=== PATIENT | male | born 1955 | race Caucasian/White ===

== ENCOUNTER → 2017-09-25 09:59 | Outpatient (CLI) | payer BC, SELFPAY ==
[2017-09-25 11:34] LABS: ALB/GLOB Ratio 1.1 RATIO (0.9-2.4); AST(SGOT) 19 U/L (15-37); Alanine Aminotransfer ALT/SGPT 25 U/L (16-61); Albumin, Serum 3.7 g/dL (3.2-5.0); Alkaline Phosphatase 82 U/L (45-117); Anion Gap 4 (5-15); BUN 37 mg/dL (7-18); BUN/Creat Ratio 21.6 RATIO (10-20); Calcium,Total 8.7 mg/dL (8.5-10.1); Chloride 104 mmol/L (98-107); Cholesterol 162 mg/dL (200); Creatinine, Serum 1.71 mg/dL (0.70-1.30); EST Glomerular Filtration Rate 43 mL/min (>60); Est Glom Filt Rate - Afr Amer 52 mL/min (>60); Globulin 3.3 g/dL (2.2-4.2); Glucose 86 mg/dL (74-106); High Density Lipoprotein 66 mg/dL; PSA,Total - Annual Screen 1.55 ng/mL (0.00-4.00); Potassium 4.2 mmol/L (3.5-5.1); Sodium Level 138 mmol/L (136-145); Triglycerides 58 mg/dL; Uric Acid 5.4 mg/dL (3.5-7.2); Very Low Density Lipoprotein 12 mg/dL (5-40)
== END ==
PROVIDERS: Family Provider Family Medicine; PCP Family Medicine; Visit Provider Family Medicine
DX: E78.5 Hyperlipidemia, unspecified (principal); M10.9 Gout, unspecified; Z12.5 Encounter for screening for malignant neoplasm of prostate
CPT/HCPCS: 36415; 80053; 80061; 84153; 84550; G0103

== ENCOUNTER → 2018-09-27 11:59 | Outpatient (CLI) | payer BC, SELFPAY ==
[2018-09-27 13:31] LABS: ALB/GLOB Ratio 1.2 RATIO (0.9-2.4); AST(SGOT) 21 U/L (15-37); Alanine Aminotransfer ALT/SGPT 25 U/L (16-61); Albumin, Serum 3.8 g/dL (3.2-5.0); Alkaline Phosphatase 86 U/L (45-117); Anion Gap 6 (5-15); BUN 30 mg/dL (7-18); BUN/Creat Ratio 18.9 RATIO (10-20); Chloride 104 mmol/L (98-107); Cholesterol 165 mg/dL (200); Creatinine, Serum 1.59 mg/dL (0.70-1.30); EST Glomerular Filtration Rate 47 mL/min (>60); Est Glom Filt Rate - Afr Amer 57 mL/min (>60); Globulin 3.1 g/dL (2.2-4.2); Glucose 87 mg/dL (74-106); High Density Lipoprotein 72 mg/dL; PSA,Total - Annual Screen 1.63 ng/mL (0.00-4.00); Potassium 3.8 mmol/L (3.5-5.1); Protein, Total 6.9 g/dL (6.4-8.2); Sodium Level 138 mmol/L (136-145); Triglycerides 61 mg/dL; Uric Acid 5.5 mg/dL (3.5-7.2); Very Low Density Lipoprotein 12 mg/dL (5-40)
== END ==
PROVIDERS: Family Provider Family Medicine; PCP Family Medicine; Referring Provider Family Medicine; Visit Provider Family Medicine
DX: I10 Essential (primary) hypertension (principal); E78.5 Hyperlipidemia, unspecified; M10.9 Gout, unspecified; Z12.5 Encounter for screening for malignant neoplasm of prostate
CPT/HCPCS: 36415; 80053; 80061; 84153; 84550; G0103

== ENCOUNTER → 2019-12-25 09:25 | Outpatient (CLI) | payer BC, SELFPAY ==
[2019-12-25 10:32] LABS: Anion Gap 4 (5-15); BUN 36 mg/dL (7-18); BUN/Creat Ratio 20.2 RATIO (10-20); Calcium,Total 9.2 mg/dL (8.5-10.1); Chloride 107 mmol/L (98-107); Creatinine, Serum 1.78 mg/dL (0.70-1.30); EST Glomerular Filtration Rate 41 mL/min (>60); Est Glom Filt Rate - Afr Amer 50 mL/min (>60); Glucose 97 mg/dL (74-106); PSA,Total - Annual Screen 1.89 ng/mL (0.00-4.00); Potassium 3.7 mmol/L (3.5-5.1); Sodium Level 141 mmol/L (136-145)
== END ==
PROVIDERS: PCP Student in an Organized Health Care Education/Training Program; Referring Provider Nurse Practitioner Adult Health; Visit Provider Nurse Practitioner Adult Health
DX: R33.9 Retention of urine, unspecified (principal); Z12.5 Encounter for screening for malignant neoplasm of prostate
CPT/HCPCS: 36415; 80048; 84153; G0103

== ENCOUNTER → 2020-01-16 08:13 | Outpatient (CLI) | payer BC, SELFPAY ==
--- NOTE | 2020-01-16 08:16 | CT_ITS ---
STUDY: CT ABDOMEN AND PELVIS WITH AND WITHOUT CONTRAST REASON FOR EXAM: Male, 64 years old. MICROSCOPIC HEMATURIA FOR YEARS. NO ABD PAIN. -- H/O ENLARGED PROSTATE W/ INDENTATION AT BLADDER BASE ON US IN 2016. H/O [place] RADIATION DOSAGE (If Supplied By Facility): CTDIvol = ( 11.1275 ) mGy, DLP = ( 1528.55 ) mGycm TECHNIQUE: Transaxial images were obtained from the dome of the diaphragm to the symphysis pubis without oral contrast. IV 100mL Isovue-370 was administered. Sagittal and coronal images were reconstructed. Individualized dose optimization techniques were used for this CT. COMPARISON: None. FINDINGS: The visualized lung bases are unremarkable. Coronary artery calcification. Normal liver. Normal gallbladder and extrahepatic biliary system. Normal spleen. Normal pancreas. Normal bilateral adrenal glands. 1 cm cyst in the upper pole of the right kidney. 1 cm cyst in the upper pole of the left kidney. There is moderate cortical atrophy of the left kidney, consistent with chronic medical renal disease. There is a moderate-sized hiatal hernia. Normal small intestine. There are multiple colonic diverticula consistent with diverticulosis. The appendix is visualized and appears normal. There is scattered atherosclerotic calcification of the abdominal aorta, without a demonstrated aneurysm. Normal inferior vena cava. Normal retroperitoneum. Mild degree of bladder wall thickening more prominently seen in the anterior aspect of the urinary bladder. There is enlargement of the prostate gland. It measures 4.5 cm x 5.6 cm. This causes indentation of the bladder base. Normal abdominal wall. Normal osseous structures. CT/CT Abd/Pelvis W/WO Contrast IMPRESSION: Atrophy of the left kidney. Moderate sized hiatal hernia. Prostatic enlargement with indentation of the bladder base. Electronically Signed: Miguel Rose, at 10:56 EDT , Service support ,
== END ==
PROVIDERS: PCP Student in an Organized Health Care Education/Training Program; Referring Provider Nurse Practitioner Adult Health; Visit Provider Nurse Practitioner Adult Health
DX: R31.21 Asymptomatic microscopic hematuria (principal)
CPT/HCPCS: 74178; Q9967

== ENCOUNTER → 2020-04-20 06:18 | Outpatient (CLI) | payer BC, SELFPAY ==
--- NOTE | 2020-04-20 06:37 | MRI_ITS ---
STUDY: MRI RIGHT SHOULDER REASON FOR EXAM: Biceps strain from shoulder injury 3 weeks ago. TECHNIQUE: Standardized fat and water weighted pulse sequences were obtained in all 3 orthogonal planes. COMPARISON: None. FINDINGS: There is mild supraspinatus tendinosis (T2 coronal image 14) without discrete tendon tear. Normal infraspinatus tendon. Normal subscapularis tendon. Normal teres minor tendon. Normal supraspinatus muscle. Normal infraspinatus muscle. Normal subscapularis muscle. Normal teres minor muscle. There is a small glenohumeral joint effusion. There is a very small cyst in the humeral head. There is a tear of the long biceps tendon retracted to the level of the proximal humeral diaphysis (T2 sagittal image 10). Normal labrum. Normal capsulo- ligamentous complex. There is acromioclavicular arthrosis with hypertrophic changes effacing the subacromial fat (T2 sagittal image 12). There is a Type II morphology (curved), with a neutral orientation. There is no subacromial-subdeltoid bursal fluid. Normal visualized coracohumeral and coracoacromial ligaments. Normal deltoid muscle. Normal trapezius muscle. MRI/Upper Ext Joint Only(Routine) IMPRESSION: Retracted tear of the long biceps tendon. Mild supraspinatus tendinosis. Acromioclavicular arthrosis. Small glenohumeral joint effusion. Electronically Signed: Taz Veras MD at 7:50 EST Tel , Service support ,
== END ==
PROVIDERS: PCP Student in an Organized Health Care Education/Training Program; Referring Provider Physician Assistant; Visit Provider Physician Assistant
DX: S46.111A Strain of muscle, fascia and tendon of long head of biceps, right arm, initial encounter (principal); X58.XXXA Exposure to other specified factors, initial encounter; Y93.9 Activity, unspecified; Y92.9 Unspecified place or not applicable; Y99.9 Unspecified external cause status
CPT/HCPCS: 73221

== ENCOUNTER → 2021-01-25 | Outpatient (CLI) | payer MEDICARE, SELFPAY ==
[2021-01-25 16:56] LABS: Bacteria 0 SEEN /hpf (None Seen); Mucous, Urine 0 SEEN /hpf (<or=2+); Red Blood Cells-Urine 0 SEEN /hpf (0-5); Squamous Epithelial Cells - UA 0 SEEN /hpf (0-5); White Blood Cells 0 SEEN /hpf (0-5)
[2021-01-25 17:06] LABS: Color, Urine Straw (Yellow); Glucose, Dipstick Normal (Normal); Ketone-Dipstick Negative (Negative); Leukocyte Esterase-Dipstick Negative /ul (Negative); Nitrite-Dipstick Negative (Negative); Occult Blood-Urine 25 /ul (Negative); Protein-Dipstick 100 mg/dl (Negative); Urine Bilirubin Dipstick Negative (Negative); Urine Clarity Clear (Clear); Urine Urobilinogen Normal (Normal)
== END | disposition home or self-care (01) ==
LOC: LABSPEC 16:47
PROVIDERS: PCP Student in an Organized Health Care Education/Training Program; Referring Provider Nurse Practitioner Adult Health; Visit Provider Nurse Practitioner Adult Health
DX: R31.21 Asymptomatic microscopic hematuria (principal)
CPT/HCPCS: 81001

== ENCOUNTER 2021-02-11 07:24 | Day surgery (SDC) | payer MEDICARE, SELFPAY ==
--- NOTE | 2021-02-07 10:08 | EKG12_ITS ---
Test Reason : PRE OP Blood Pressure : / mmHG Vent. Rate : 081 BPM Atrial Rate : 081 BPM P-R Int : 172 ms QRS Dur : 088 ms QT Int : 394 ms P-R-T Axes : 044 015 012 degrees QTc Int : 457 ms Normal sinus rhythm Left ventricular hypertrophy Abnormal ECG Confirmed by HAROLDO MADISON, NETO ([id number]), features editor ERIKA JUAREZ ([id number]) on 02/14/2021 12:33:02 PM Referred By: Dean Mandujano Confirmed By:BLANKA ZARCO MD
[2021-02-11] MEDS: Lactated Ringers 1,000 ML 100 ML IV (07:35)
[2021-02-11 07:55] VITALS: BP 167/95; PULSE 90; RESP 16; TEMP 36.6; O2SAT 96; BMI 25.7
[2021-02-11] MEDS: Cefazolin 2 GM in 0.9% Normal Saline 100 ML IV (09:25)
--- NOTE | 2021-02-11 09:25 | PROS_PTH ---
PATIENT: PAMELA ONEAL [place] [facility] [place][id number] AGE/SX: 65/M ROOM: RE02/11/[address]: Dr. Dean Mandujano MD : [id number] BED: DIS: 02/11/2021 SPEC #: [id number] RECD: 02/11/21 09:50 STATUS: HUMBLE KIMBERLY #: [id number] THERON: 02/11/21 09:[address]: Dean Mandujano DEPT: SURGICAL PATHOLOGY RECD BY: Suzie Parks ENTERED: 02/11/21 11:59 SP TYPE: TURP OTHR DR: Dr. Donal Jimenez, DO Tissues: Prostate, NOS Procedures: Surgery Specimen Level IV HEADER OPERATION: Cysto, TUR prostate, Olymp[employer] PRE-OP DIAGNOSIS: Asymptomatic microscopic hematuria, BPH, lower urinary tract symptoms, retained urine TISSUE SUBMITTED: Prostate tissue MICROSCOPIC DIAGNOSIS Prostate tissue, TUR: Benign prostatic hyperplasia, glandular and stromal type. Chronic inflammation. SJ:braden 02/14/2021 MICROSCOPIC DESCRIPTION Slides are reviewed. GROSS DESCRIPTION Received is one container labeled with the patient's name and designated prostate tissue. The specimen consists of multiple irregular fragments of pink-beltre, rubbery, soft tissue that in aggregate weigh 5.3 gm and measure in aggregate 4.5 x 3.5 x 1.2 cm. The entire specimen is submitted in six cassettes. / MANFRED:braden 02/11/21 TC:5 CPT: 90935
--- NOTE | 2021-02-11 09:27 | PCM.DC ---
Discharge Instructions Diet Discharge Diet: No restrictions Activity Discharge Activity: Return to Normal Activity and May Not Drive (while taking narcotic pain medications.) Dressing / Incision Call your doctor if you observe: Fever of 101 or Higher Follow Up Care Please Follow Up With: Dean Mandujano MD When: Call [phone] for an appointment come in sunday to remove cote Test Results: Test results from this visit will be discussed in further detail at your follow-up appointment, if applicable. Discharge Plan Admission Primary Reason for Your Visit: bipin Attending Provider: Dean Mandujano Primary Care Provider: Donal Jimenez Instructions Patient Instructions: BIPIN Home Recovery Discharge Orders/Prescriptions Prescriptions: New ciprofloxacin HCl [Cipro] 500 mg tablet 500 mg PO BID Qty: 14 RF: 0 Continued diltiazem HCl 120 mg Capsule,Extended Release 24hr 120 mg PO QHS RF: 0 allopurinol 300 mg tablet 300 mg PO DAILY RF: 0 lisinopril 40 mg tablet 40 mg PO DAILY RF: 0 finasteride 5 mg tablet 5 mg PO DAILY RF: 0 ezetimibe 10 mg tablet 10 mg PO DAILY RF: 0 cholecalciferol (vitamin D3) [Vitamin D3] 125 mcg (5,000 unit) Tablet 125 mcg PO DAILY RF: 0 aspirin 81 mg Capsule 81 mg PO DAILY RF: 0 Referrals / Follow Up: Dean Mandujano MD [STAFF PHYSICIAN] - Donal Jimenez DO [Primary Care Provider] - Disposition Disposition (needs filled in before D/C Order can be placed): Home, Self Care
--- NOTE | 2021-02-11 09:27 | PCM.OPRPT ---
Report of Operation Date of Procedure: 02/11/21 Pre-Operative Diagnosis: bph with obstruction Post-Operative Diagnosis: same Surgery/Procedure Performed:: TURP Description of Surgical Findings:: In the preoperative setting I discussed with the patient how the surgery would be done with expect afterwards. We discussed how a prostate resection is done and we discussed the risk of the surgery including, bleeding, infection, retrograde ejaculation, changes with ejaculation or intercourse,. We discussed the possibility that the resection of the prostate may not alleviate his urinary symptoms. We discussed the small risk of developing scar tissue along the urethral channel and strictures. We also discussed the chance of the prostate could grow back and he may need further surgery or treatment in the future for prostate problems. Patient was taken back to the operating room, timeout procedure was performed, he was identified and marked and placed on the operating room table. He underwent general anesthesia. He was placed in dorsolithotomy position. Penis and testicles were prepped and draped in usual sterile fashion. Went into the bladder using the visual obturator with a resectoscope. Once inside the bladder identified the right and left ureteral orifice. I then identified the prostate and the anatomy of the prostate. I marked out the area of the sphincter and the verumontanum was identified. I then proceeded with the prostate resection first resected the median lobe. And then resected the right lobe of the prostate. Then to resect the left lobe of the prostate. I then resected the apical tissue of the prostate. Made sure that there was no injury to the sphincter or the verumontanum was still intact. At the end of the resection all the chips were Ellik out of the bladder. I then identified the left and right ureteral orifice and these were confirmed to be in good position and effluxing and not injured. The resectoscope was removed, a 20 Citizen [place] catheter was placed into the bladder. And the urine was fairly light pink color and draining normally. He was taken back to the PACU in good condition. Surgeon: sailaja Type of Anesthesia: General Drains: 20 fr cote Admit VTE Documentation VTE Present on Admission: No VTE Mechan Device Prophylaxis: SCD's VTE Pharm Prophylaxis ordered?: No
[2021-02-11 09:30] VITALS: BP 111/74; BP 167/95; PULSE 89; RESP 16; TEMP 36; O2SAT 97
[2021-02-11 09:45] VITALS: BP 130/83; BP 167/95; PULSE 80; RESP 16; O2SAT 97
[2021-02-11 10:00] VITALS: BP 127/83; BP 167/95; PULSE 86; RESP 16; O2SAT 10
[2021-02-11 10:04] VITALS: BP 141/82; BP 167/95; PULSE 87; RESP 16; TEMP 36.1; O2SAT 96
[2021-02-11 11:24] VITALS: BP 160/92; BP 167/95; PULSE 85; RESP 16; TEMP 36.4; O2SAT 97
== END 2021-02-11 11:30 | disposition home or self-care (01) ==
LOC: SDC 07:25 → AC 07:26
PROVIDERS: PCP Student in an Organized Health Care Education/Training Program; Referring Provider Urology; Visit Provider Urology
PROC: (CPT 52630; principal; 2021-02-11 09:15)
DX: N41.1 Chronic prostatitis (principal); N40.1 Benign prostatic hyperplasia with lower urinary tract symptoms; N13.8 Other obstructive and reflux uropathy; R33.8 Other retention of urine; R31.21 Asymptomatic microscopic hematuria; Z20.822 Contact with and (suspected) exposure to COVID-19; I10 Essential (primary) hypertension; M10.9 Gout, unspecified; Z79.82 Long term (current) use of aspirin; Z79.899 Other long term (current) drug therapy; Z87.891 Personal history of nicotine dependence; Z90.79 Acquired absence of other genital organ(s)
CPT/HCPCS: 52630; 87426; 88305; 93005; C9803; J7120; J2405

== ENCOUNTER → 2022-09-07 | Outpatient (CLI) | payer MEDICARE, SELFPAY ==
[2022-09-07 16:01] LABS: PSA,Total - Annual Screen 2.89 ng/mL (0.00-4.00)
== END | disposition home or self-care (01) ==
LOC: LAB 14:30
PROVIDERS: PCP Student in an Organized Health Care Education/Training Program; Referring Provider Registered Nurse; Visit Provider Registered Nurse
DX: Z12.5 Encounter for screening for malignant neoplasm of prostate (principal)
CPT/HCPCS: 36415; 84153; G0103

== ENCOUNTER → 2023-09-13 | Outpatient (CLI) | payer MEDICARE, SELFPAY ==
[2023-09-13 15:41] LABS: PSA,Total - Annual Screen 3.37 ng/mL (0.00-4.00)
== END | disposition home or self-care (01) ==
LOC: LAB 13:51
PROVIDERS: PCP Student in an Organized Health Care Education/Training Program; Referring Provider Urology; Visit Provider Urology
DX: Z12.5 Encounter for screening for malignant neoplasm of prostate (principal)
CPT/HCPCS: 36415; 84153; G0103

== ENCOUNTER → 2024-09-18 | Outpatient (CLI) | payer MEDICARE, SELFPAY ==
[2024-09-18 15:46] LABS: PSA,Total - Annual Screen 3.27 ng/mL (0.02-4.00)
== END | disposition home or self-care (01) ==
LOC: LAB 13:39
PROVIDERS: PCP Student in an Organized Health Care Education/Training Program; Referring Provider Urology; Visit Provider Urology
DX: Z12.5 Encounter for screening for malignant neoplasm of prostate (principal)
CPT/HCPCS: 36415; 84153; G0103